=== PATIENT | male | born 1930 | race Caucasian/White ===

== ENCOUNTER 2017-06-19 10:11 | Outpatient (CLI) | payer MEDICARE, OTHER ==
--- NOTE | 2017-06-19 15:31 | XRAY Report ---
THREE VIEW LEFT INDEX FINGER: 06/19/2017 CLINICAL INDICATION: Swelling, trauma. FINDINGS: AP, lateral, oblique views of the left index finger demonstrate soft tissue swelling at the proximal interphalangeal joint. 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 No foreign body is seen in the soft tissues. There is no evidence of acute fracture. IMPRESSION: SOFT TISSUE SWELLING. OSTEOARTHRITIS, BUT NO EVIDENCE OF ACUTE FRACTURE. TD: 06/19/2017 15:30
== END 2017-06-19 10:12 | disposition home or self-care (01) ==
LOC: DI.S 10:11
PROVIDERS: ATTEND Internal Medicine
DX: M19.042 Primary osteoarthritis, left hand (principal)
CPT/HCPCS: 73140

== ENCOUNTER 2018-02-27 06:09 | Outpatient (CLI) | payer MEDICARE, OTHER | END 2018-02-27 06:10 | disposition critical access hospital (66) | LOC: EMS 06:09 | PROVIDERS: ATTEND Surgery | DX: R25.9 Unspecified abnormal involuntary movements (principal); R68.89 Other general symptoms and signs | CPT/HCPCS: A0425; A0429 ==

== ENCOUNTER 2018-02-27 06:48 | Emergency (ER) | payer MEDICARE, OTHER ==
--- NOTE | 2018-02-27 07:27 | ED Physician Documentation ---
History of Present Illness - Stated complaint Stated Complaint: SHAKY - Chief complaint Chief Complaint: MHE - History obtained from History obtained from: Patient - History of Present Illness Timing: Enter time (529), Today - Additonal information Additional information: 87-year-old male awoke at 530 this morning and did not feel well. He developed shaking chills and shallow breathing as well as generalized anxiety. He feels he may have had an anxiety attack and he began to feel better when he got into the ambulance with paramedics. He states that he felt better when there were people around and talking. He states this is happened to him previously but it has been a long time. He denies any recent illness denies any difficulty with his urination he does have a chronic cough with postnasal drip this is not changed. He has not been feeling ill earlier in the week. He describes some shaking in his arms and legs and is corroborated with his and it does sound like he may have had some shaking chills. Review of Systems Constitutional: reports: Chills. denies: Fever, Myalgias, Fatigue, Sweats Eyes: denies: Decreased vision Ears: denies: Ear pain Nose: reports: Congestion. denies: Rhinorrhea / runny nose Throat: denies: Dental pain / toothache, Sore throat Cardiac: denies: Chest pain / pressure, Palpitations Respiratory: reports: Dyspnea. denies: Cough GI: denies: Abdominal Pain, Nausea, Vomiting, Constipation, Diarrhea : denies: Dysuria, Frequency, Incontinent, Hematuria, Discharge Skin: denies: Rash Musculoskeletal: denies: Neck pain, Back pain, Extremity pain Neurologic: denies: Generalized weakness, Focal weakness, Numbness Psychiatric: reports: Anxiety. denies: Depressed, Suicidal, Hallucinations PD PAST MEDICAL HISTORY - Past Medical History Past Medical History: Yes Cardiovascular: High cholesterol GI: GERD Psych: Anxiety, Panic attacks, Claustrophobia - Past Surgical History Past Surgical History: Yes General: Appendectomy, Hiatal hernia repair Ortho: Other HEENT: Tonsil/Adenoidectomy - Present Medications Home Medications: Ambulatory Orders Medication Instructions Recorded Confirmed Alprazolam [Xanax] 1 mg PO Q8HR PRN #12 tablet 02/27/18 Aspirin 1 tab PO DAILY 02/27/18 02/27/18 Atorvastatin Calcium 20 mg PO DAILY 02/27/18 02/27/18 - Allergies Allergies/Adverse Reactions: Allergies Allergy/AdvReac Type Severity Reaction Status Date / Time No Known Drug Allergies Allergy Verified 02/27/18 06:57 - Social History Does the pt smoke?: No Smoking Status: Never smoker Does the pt drink ETOH?: Yes Does the pt have substance abuse?: No - Immunizations Immunizations are current?: Yes - POLST Patient has POLST: No PD ED PE NORMAL - Vitals Vital signs reviewed: Yes (hypertensive diastolic ) - General General: Alert and oriented X 3, No acute distress, Well developed/nourished - HEENT HEENT: Atraumatic, PERRL, EOMI, Ears normal - Neck Neck: Supple, no meningeal sign, No bony TTP - Cardiac Cardiac: RRR, No murmur - Respiratory Respiratory: No respiratory distress, Clear bilaterally - Abdomen Abdomen: Soft, Non tender - Back Back: No CVA TTP, No spinal TTP - Derm Derm: Normal color, Warm and dry, No rash - Extremities Extremities: No deformity, No edema - Neuro Neuro: Alert and oriented X 3, life trainer 2-12 intact, No motor deficit, No sensory deficit, Normal speech Eye Opening: Spontaneous Motor: Obeys Commands Verbal: Oriented GCS Score: 15 - Psych Psych: Normal mood, Normal affect Results - Vitals Vitals: Vital Signs - 24 hr 02/27/18 06:45 Temperature 36.2 C L Heart Rate 60 Respiratory 14 Rate Blood Pressure 128/105 H O2 Saturation 100 Oxygen O2 Source Room air - EKG (time done) 0654 Rate: Rate (enter#) (57) Rhythm: NSR Ischemia: Normal ST segments Compare to prior EKG: Old EKG unavailable Computer interpretation: Agree with computer - Labs Labs: Laboratory Tests 02/27/18 02/27/18 02/27/18 07:40 07:40 07:40 WBC 4.2 L RBC 4.34 L Hgb 13.6 L Hct 39.1 L MCV 90.1 MCH 31.4 H MCHC 34.9 RDW 13.6 Plt Count 113 L MPV 9.0 Neut # (Auto) 2.9 Lymph # (Auto) 0.7 L [place] # (Auto) 0.4 Eos # (Auto) 0.1 Baso # (Auto) 0.0 Absolute Nucleated RBC 0.00 Nucleated RBC % 0.1 Sodium 136 Potassium 3.6 Chloride 104 Carbon Dioxide 24 Anion Gap 8.0 BUN 20 Creatinine 0.8 Estimated GFR (MDRD) 92 Glucose 95 Calcium 8.2 L Total Bilirubin 0.7 AST 24 ALT 17 Alkaline Phosphatase 55 Troponin I < 0.04 Total Protein 5.9 L Albumin 3.5 Globulin 2.4 Albumin/Globulin Ratio 1.5 Lipase 43 Urine Color Urine Clarity Urine pH Ur Specific [place] Urine Protein Urine Glucose (UA) Urine Ketones Urine Occult Blood Urine Nitrite Urine Bilirubin Urine Urobilinogen Ur Leukocyte Esterase Ur Microscopic Review Urine Culture Comments 02/27/18 08:45 WBC RBC Hgb Hct MCV MCH MCHC RDW Plt Count MPV Neut # (Auto) Lymph # (Auto) [place] # (Auto) Eos # (Auto) Baso # (Auto) Absolute Nucleated RBC Nucleated RBC % Sodium Potassium Chloride Carbon Dioxide Anion Gap BUN Creatinine Estimated GFR (MDRD) Glucose Calcium Total Bilirubin AST ALT Alkaline Phosphatase Troponin I Total Protein Albumin Globulin Albumin/Globulin Ratio Lipase Urine Color YELLOW Urine Clarity CLEAR Urine pH 6.5 Ur Specific [place] 1.020 Urine Protein NEGATIVE Urine Glucose (UA) NEGATIVE Urine Ketones NEGATIVE Urine Occult Blood TRACE-INTA Urine Nitrite NEGATIVE Urine Bilirubin NEGATIVE Urine Urobilinogen 0.2 (NORMAL) Ur Leukocyte Esterase NEGATIVE Ur Microscopic Review NOT INDICATED Urine Culture Comments NOT INDICATED - Rads (name of study) 2 veiw chest Radiology: Prelim report reviewed (Impression: Mildly coarse and diffuse interstitial pulmonary opacities may reflect chronic lung disease or mild interstitial edema. No focal pulmonary consolidation.), EMP read indepedently, See rad report PD MEDICAL DECISION MAKING - ED course Complexity details: reviewed results, re-evaluated patient, considered differential, d/w patient, d/w family ED course: 87 y/o male with presentation consistent with a panic attack has a negative work up this morning. Departure - Departure Disposition: 01 Home, Self Care Clinical Impression: Anxiety attack Condition: Stable Instructions: ED Panic Attack Follow-Up: George Sullivan MD [Primary Care Provider] - Prescriptions: Alprazolam [Xanax] 1 mg PO Q8HR PRN #12 tablet PRN Reason: Anxiety
[2018-02-27 07:51] LABS: BASOPHILS % (AUTO) 0.6 %; EOSINOPHILS # (AUTO) 0.1 10^3/uL (0.0-0.7); EOSINOPHILS % (AUTO) 2.8 %; HGB - HEMOGLOBIN 13.6 g/dL (14.0-18.0); LYMPHOCYTES # (AUTO) 0.7 10^3/uL (1.5-3.5); LYMPHOCYTES % (AUTO) 17.9 %; MEAN CORPUSCULAR HEMOGLOBIN 31.4 pg (27.0-31.0); MEAN CORPUSCULAR HGB CONC 34.9 g/dL (32.0-36.0); MEAN CORPUSCULAR VOLUME 90.1 fL (80.0-94.0); MONOCYTES # (AUTO) 0.4 10^3/uL (0.0-1.0); MONOCYTES % (AUTO) 9.5 %; NEUTROPHILS # (AUTO) 2.9 10^3/uL (1.5-6.6); NEUTROPHILS % (AUTO) 69.2 %; PLT - PLATELET COUNT 113 10^3/uL (130-450); RED BLOOD COUNT 4.34 10^6/uL (4.70-6.10); RED CELL DISTRIBUTION WIDTH 13.6 % (12.0-15.0); WHITE BLOOD COUNT 4.2 x10^3/uL (4.8-10.8)
[2018-02-27 08:02] LABS: ALBUMIN 3.5 g/dL (3.2-5.5); ALBUMIN/GLOBULIN RATIO 1.5 (1.0-2.2); BILIRUBIN,TOTAL 0.7 mg/dL (0.2-1.0); CALCIUM 8.2 mg/dL (8.5-10.3); CREATININE 0.8 mg/dL (0.6-1.2); TOTAL PROTEIN 5.9 g/dL (6.7-8.2)
--- NOTE | 2018-02-27 08:36 | XRAY Report ---
Reason: cough shaking chills Procedure Date: 02/27/2018 Accession Number: [id number] / [id number] Procedure: XR - Chest 2 View X-Ray CPT Code: 86966 FULL RESULT: EXAM: CHEST RADIOGRAPHY EXAM DATE: 02/27/2018 08:06 AM. CLINICAL HISTORY: Cough, shaking chills. COMPARISON: None. TECHNIQUE: 2 views. FINDINGS: Lungs/Pleura: There are mildly coarsened diffuse interstitial pulmonary opacities. No focal pulmonary consolidation. No pleural effusion. No pneumothorax. Normal volumes. Mediastinum: Heart and mediastinal contours are unremarkable. Other: No acute osseous abnormality. There are mild degenerative disk changes of the thoracic spine. IMPRESSION: Mildly coarsened diffuse interstitial pulmonary opacities may reflect chronic lung disease or mild interstitial edema. No focal pulmonary consolidation. RADIA
[2018-02-27 09:18] LABS: BILIRUBIN,URINE NEGATIVE (NEGATIVE); GLUCOSE, URINE (UA) NEGATIVE (NEGATIVE); KETONES,URINE (UA) NEGATIVE (NEGATIVE); LEUKOCYTE ESTERASE, URINE NEGATIVE (NEGATIVE); NITRITE,URINE NEGATIVE (NEGATIVE); OCCULT BLOOD,URINE TRACE-INTA (NEGATIVE); PH,URINE 6.5 PH (5.0-7.5); PROTEIN,URINE NEGATIVE (NEGATIVE); UROBILINOGEN,URINE 0.2 (NORMAL) E.U./dL (NORMAL)
[2018-02-27 09:19] LABS: CLARITY,URINE CLEAR (CLEAR)
[2018-02-27 09:48] VITALS: BP 126/75
== END 2018-02-27 09:56 | disposition home or self-care (01) ==
LOC: EDUNIT# → ED 06:48
DX: F41.0 Panic disorder [episodic paroxysmal anxiety] (principal); R03.0 Elevated blood-pressure reading, without diagnosis of hypertension; E78.00 Pure hypercholesterolemia, unspecified; K21.9 Gastro-esophageal reflux disease without esophagitis; Z79.899 Other long term (current) drug therapy; Z79.82 Long term (current) use of aspirin
CPT/HCPCS: 36415; 71046; 80053; 81001; 81003; 83690; 84484; 85025; 87086; 93005; 99283; 99284

== ENCOUNTER 2020-04-29 11:58 | Outpatient (CLI) | payer MEDICARE, OTHER ==
--- NOTE | 2020-04-29 12:29 | XRAY Report ---
PROCEDURE: Hip w/Pelvis 2-3V RT INDICATIONS: PAIN IN RIGHT HIP TECHNIQUE: AP pelvis with lateral view(s) of the right hip(s). COMPARISON: None. FINDINGS: Bones: No fractures or dislocations. Pelvic ring appears intact. No suspicious bony lesions. Ivana re right hip degenerative arthritis with osteophytes and joint space obliteration. Soft tissues: The visualized bowel gas pattern is normal. No suspicious soft tissue calcifications. Presumed radical prostatectomy clips. IMPRESSION: Severe right hip degenerative arthritis. No evidence acute bony abnormality of the pelvi s and bilateral hips. Reviewed by: Neftaly Cosme MD on 04/29/2020 12:27 PM PST Approved by: Neftaly Cosme MD on 04/29/2020 12:27 PM PST Station ID: [id number]
== END 2020-04-29 11:59 | disposition home or self-care (01) ==
LOC: DI.S 11:58
PROVIDERS: ATTEND Nurse Practitioner Family
DX: M16.11 Unilateral primary osteoarthritis, right hip (principal)

== ENCOUNTER 2021-04-07 14:13 | Outpatient (CLI) | payer MEDICARE, OTHER ==
--- NOTE | 2021-04-07 22:08 | XRAY Report ---
PROCEDURE: Knee 3 View LT INDICATIONS: SWELLING OF KNEE JOINT TECHNIQUE: 3 views of the left knee(s) were acquired. COMPARISON: None. FINDINGS: Bones: No fractures or dislocations. No suspicious bony lesions. Moderate tricompartmental knee precious nt degeneration. Soft tissues: Small joint effusion. Atherosclerotic calcifications. IMPRESSION: 1. Moderate degenerative joint disease. 2. Small knee joint effusion. Reviewed by: Anne Aguero MD on 04/07/2021 10:07 PM [facility] Approved by: Anne Aguero MD on 04/07/2021 10:07 PM [facility] Station ID: [id number]
== END 2021-04-07 14:14 | disposition home or self-care (01) ==
LOC: DI.S 14:13
PROVIDERS: ATTEND Nurse Practitioner Family
DX: M25.462 Effusion, left knee (principal); M17.12 Unilateral primary osteoarthritis, left knee